=== PATIENT | female | born 1945 | race Caucasian/White ===

== ENCOUNTER → 2020-11-01 | Outpatient (CLI) | payer OTHER ==
[~2020-11-01] MED LIST: ASPIRIN EC81 MG PO; ASPIRIN81 MG PO; BETAPACE 80MG T80 MG PO; ELIQUIS5 MG PO; HYDROCHLOROTH12.5 M1 PO; HYDROCHLOROTH12.5 MG PO; LEVOTHYROXINE75 MC1 PO; LEVOTHYROXINE75 MCG PO; LISINOPRIL5 MG PO; METOPROLOL SUC100 MG PO; SOTALOL80 MG PO; ZOCOR 40 MG TAB40 MG PO; ZOCOR40 MG PO
== END ==
LOC: RT 10:55
DX: R00.2 Palpitations (principal); I48.0 Paroxysmal atrial fibrillation

== ENCOUNTER → 2020-11-21 | Outpatient (CLI) | payer OTHER ==
[2020-11-21 07:54] LABS: HEMOGLOBIN 13.2 gm/dl (12.3-15.3); RED BLOOD COUNT 4.35 M/UL (4.00-5.10); WHITE BLOOD COUNT 7.8 K/UL (4.5-11.0)
[2020-11-21 08:13] LABS: BUN/CREATININE RATIO 15 (0-10)
== END ==
LOC: CATH 07:10
PROVIDERS: Internal Medicine Cardiovascular Disease
DX: I48.0 Paroxysmal atrial fibrillation (principal); I12.9 Hypertensive chronic kidney disease with stage 1 through stage 4 chronic kidney disease, or unspecified chronic kidney disease; N18.31 Chronic kidney disease, stage 3a; E78.5 Hyperlipidemia, unspecified; E03.9 Hypothyroidism, unspecified; Z88.0 Allergy status to penicillin; Z79.82 Long term (current) use of aspirin; Z80.9 Family history of malignant neoplasm, unspecified; Z82.49 Family history of ischemic heart disease and other diseases of the circulatory system; Z82.61 Family history of arthritis; Z79.01 Long term (current) use of anticoagulants; Z79.899 Other long term (current) drug therapy
CPT/HCPCS: 80048; 85027; 92960; 93005; J1200; J1742; J2250; J2310; J3010; J7040

== ENCOUNTER → 2021-04-11 | Outpatient (CLI) | payer OTHER | LOC: ECHO 12:59 | DX: I48.0 Paroxysmal atrial fibrillation (principal); I08.3 Combined rheumatic disorders of mitral, aortic and tricuspid valves; I27.20 Pulmonary hypertension, unspecified | CPT/HCPCS: ECHO; 93306 ==

== ENCOUNTER → 2021-11-16 | Outpatient (CLI) | payer OTHER ==
[~2021-11-16] MED LIST changes: +CLINDAMYCIN HC300 MG PO; +DIGOXIN125 MCG PO; +DRISDOL1250 MCG PO; -HYDROCHLOROTH12.5 MG PO; +HYDROCODON-ACE1 EAC4 PO; +LEVOFLOXACIN500 MG PO; -LEVOTHYROXINE75 MC1 PO; +POTASSIUM CHLO20 ME1 PO; +TOPROL XL100 MG PO; +TOPROL XL25 MG PO; +VITAMIN D250 MCG PO; +VITAMIN D3125 MCG/0. PO
[2021-11-16 10:54] LABS: HEMOGLOBIN 14.9 gm/dl (12.3-15.3); RED BLOOD COUNT 5.08 M/UL (4.00-5.10); WHITE BLOOD COUNT 6.4 K/UL (4.5-11.0)
[2021-11-16 11:15] LABS: BUN/CREATININE RATIO 22 (0-10)
== END ==
LOC: LAB 09:40
PROVIDERS: Internal Medicine Cardiovascular Disease
DX: I48.19 Other persistent atrial fibrillation (principal); R00.2 Palpitations
CPT/HCPCS: 36415; 71046; 80048; 85025

== ENCOUNTER 2021-11-20 06:48 | Outpatient (CLI) | payer OTHER ==
[~2021-11-20] VITALS: Ht 162.6 cm; Wt 56.7 kg
[~2021-11-20 06:48] MED LIST changes: -CLINDAMYCIN HC300 MG PO; -DIGOXIN125 MCG PO; -DRISDOL1250 MCG PO; -HYDROCODON-ACE1 EAC4 PO; -LEVOFLOXACIN500 MG PO; -POTASSIUM CHLO20 ME1 PO; -TOPROL XL100 MG PO; -TOPROL XL25 MG PO; -VITAMIN D250 MCG PO; -VITAMIN D3125 MCG/0. PO
[2021-11-20] MEDS ORDERED: TOPROL XL100 MG PO (07:43)
[2021-11-20] MEDS ORDERED: VITAMIN D3125 MCG/0. PO (07:44)
[2021-11-20] MEDS ORDERED: VITAMIN D250 MCG PO (07:44)
[2021-11-20] MEDS ORDERED: POTASSIUM CHLO20 ME1 PO (07:45)
[2021-11-20] MEDS ORDERED: HYDROCHLOROTH12.5 M1 PO (08:21)
[2021-11-20] MEDS ORDERED: LEVOTHYROXINE75 MCG PO (08:21)
[2021-11-20] MEDS ORDERED: HYDROCODON-ACE1 EAC4 PO (12:44)
[2021-11-20] MEDS ORDERED: CLINDAMYCIN HC300 MG PO (12:44)
[2021-11-20] MEDS ORDERED: LEVOFLOXACIN500 MG PO (12:44)
[2021-11-20] MEDS ORDERED: TOPROL XL25 MG PO (12:45)
[2021-11-20] MEDS ORDERED: DRISDOL1250 MCG PO (14:12)
[2021-11-20] MEDS ORDERED: DIGOXIN125 MCG PO (14:12)
--- NOTE | 2021-11-20 21:11 | NUR ---
PT REPORTS THAT HER LEFT ARM IS TWITCHING AND CAUSING DISCOMFORT. NOTIFIED DR PALACIOS AND HE STATES, THE PACEMAKER REP WILL COME TOMMOROW AND MAKE ADJUSTMENTS TO HER PACEMAKER BEFORE SHE GOES HOME. PATIENT UPDATED.
== END 2021-11-21 11:54 | disposition home or self-care (01) ==
LOC: CATH 06:48 → PROG CARE 12:46 → CATH 11-21 11:54
DX: I48.19 Other persistent atrial fibrillation (principal); I49.5 Sick sinus syndrome; I10 Essential (primary) hypertension; E78.5 Hyperlipidemia, unspecified; I42.9 Cardiomyopathy, unspecified; Z20.822 Contact with and (suspected) exposure to COVID-19; Z79.01 Long term (current) use of anticoagulants; Z79.82 Long term (current) use of aspirin; Z88.0 Allergy status to penicillin; Z88.8 Allergy status to other drugs, medicaments and biological substances
CPT/HCPCS: 71045; 92960; 93005; 93650; 99152; 99153; C1730; C1733; C1766; C1769; C1898; C1900; C2621; J1644; J2250; J3010; J3370; J7040; J7050; J7070; Q9965